=== PATIENT | male | born 1965 | race Caucasian/White ===

== ENCOUNTER → 2024-11-25 09:31 | Outpatient (REF) | payer MEDICARE, BC, SELFPAY ==
[2024-11-25 12:07] LABS: % Basophils 0.4 % (0-2); % Eosinophils 1.4 % (0-6); % Immature Granulocytes 0.2 % (0-0.5); % Monocytes 13.6 % (1.7-9.3); % Neutrophils 68.4 % (42.2-75.2); Absolute Eosinophils 0.1 10^3/uL (0-0.7); Absolute Lymphocytes 0.8 10^3/uL (1.2-3.4); Absolute Monocytes 0.7 10^3/uL (0.1-0.6); Absolute Neutrophils 3.5 10^3/uL (1.4-6.5); Hematocrit 34.9 % (39.0-52.0); Hemoglobin 11.7 g/dL (13.0-18.0); Mean Corp Hgb Conc. 33.5 g/dL (33.0-37.0); Mean Corpuscular Volume 95.4 fL (80.0-94.0); Mean Platelet Volume 10.6 fL (7.4-10.4); Nucleated Red Blood Cells % 0 % (-); Platelet Count 204 10^3/uL (130-400); Red Blood Cell Count 3.66 10^6/uL (4.70-6.10); White Blood Cell Count 5.1 10^3/uL (4.8-10.8)
[2024-11-25 16:21] LABS: ALT (SGPT) 60 U/L (0-50); AST (SGOT) 43 U/L (17-59); Alkaline Phosphatase 40 U/L (38-126); Blood Urea Nitrogen 25 mg/dl (9-20); Calcium 9.6 mg/dl (8.4-10.2); Carbon Dioxide 23 mmol/L (22-30); Chloride 107 mmol/L (98-107); Glucose 119 mg/dl (70-99); HDL Cholesterol 55 mg/dl; LDL Cholesterol, Calculated 82 mg/dl; Magnesium 1.6 mg/dl (1.6-2.3); Potassium 4.7 mmol/L (3.5-5.1); Sodium 142 mmol/L (135-145); Total Bilirubin 0.6 mg/dl (0.2-1.3); Total Cholesterol 150 mg/dl (50-199); Total Protein 7.2 g/dl (6.3-8.2); Triglyceride 67 mg/dl (10-149); Very Low Density Lipoprotein 13 mg/dl (0-30); eGFR > 60.00
[2024-11-25 18:07] LABS: TSH Reflex To Free T4 0.58 uIU/ml (0.47-4.68)
== END ==
LOC: HWLAB 09:31
PROVIDERS: ATTENDING PHYSICIAN Specialist; FAMILY PHYSICIAN Family Medicine; REFERRING PHYSICIAN Internal Medicine Cardiovascular Disease
DX: I10 Essential (primary) hypertension (principal); E78.00 Pure hypercholesterolemia, unspecified; Q61.3 Polycystic kidney, unspecified; Z90.5 Acquired absence of kidney
CPT/HCPCS: 36415; 80053; 80061; 80197; 83735; 84443; 85025

== ENCOUNTER → 2025-02-23 09:31 | Outpatient (REF) | payer MEDICARE, BC, SELFPAY | LOC: HWRAD 09:31 | PROVIDERS: ATTENDING PHYSICIAN Specialist; FAMILY PHYSICIAN Family Medicine | DX: Q61.3 Polycystic kidney, unspecified (principal); Z94.0 Kidney transplant status; Z90.5 Acquired absence of kidney | CPT/HCPCS: 74176 ==

== ENCOUNTER → 2025-05-16 09:17 | Outpatient (REF) | payer MEDICARE, BC, SELFPAY ==
[2025-05-16 12:52] LABS: Hematocrit 34.4 % (39.0-52.0); Hemoglobin 11.1 g/dL (13.0-18.0); Mean Corp Hgb Conc. 32.3 g/dL (33.0-37.0); Mean Corpuscular Volume 83.9 fL (80.0-94.0); Nucleated Red Blood Cells % 0 % (-); Platelet Count 171 10^3/uL (130-400); Red Cell Dist. Width 14.6 % (11.5-14.5)
[2025-05-16 13:06] LABS: ALT (SGPT) 30 U/L (0-50); AST (SGOT) 29 U/L (17-59); Albumin 4.7 g/dl (3.5-5.0); Alkaline Phosphatase 61 U/L (38-126); Blood Urea Nitrogen 51 mg/dl (9-20); Calcium 9.3 mg/dl (8.4-10.2); Carbon Dioxide 21 mmol/L (22-30); Chloride 102 mmol/L (98-107); Glucose 139 mg/dl (70-99); Magnesium 2.0 mg/dl (1.6-2.3); Potassium 5.4 mmol/L (3.5-5.1); Sodium 132 mmol/L (135-145); Total Protein 7.5 g/dl (6.3-8.2); eGFR 42.56
[2025-05-16 13:14] LABS: Urine Character Clear (Clear)
[2025-05-16 13:21] LABS: Vitamin D, 25-OH*** 53.6 ng/mL (30-80)
[2025-05-16 15:20] LABS: Urine Red Blood Cell 0-2 /HPF (0-2); Urine Squamous Cell 0-2 /LPF (Few); Urine White Cell 0-2 /HPF (0-5)
[2025-05-18 04:30] LABS: Tacrolimus (Prograft - FK506) 5.7 ng/mL
== END ==
LOC: HWLAB 09:17
PROVIDERS: ATTENDING PHYSICIAN Internal Medicine Nephrology; FAMILY PHYSICIAN Family Medicine; REFERRING PHYSICIAN Specialist
DX: Q61.3 Polycystic kidney, unspecified (principal); Z94.0 Kidney transplant status; I10 Essential (primary) hypertension; I51.1 Rupture of chordae tendineae, not elsewhere classified; Z79.899 Other long term (current) drug therapy; N18.6 End stage renal disease; Q61.2 Polycystic kidney, adult type; R73.01 Impaired fasting glucose
CPT/HCPCS: 36415; 80053; 80197; 81003; 81015; 82306; 82570; 83735; 84156; 85025